=== PATIENT | female | born 1990 | race Caucasian/White ===

== ENCOUNTER 2020-03-29 02:10 | Emergency (ER) | payer OTHER, SELFPAY ==
[2020-03-29 02:13] VITALS: BP 95/59; PULSE 86; RESP 14; TEMP 35.4; BMI 18.6
--- NOTE | 2020-03-29 02:25 | PC.NURSE ---
pt states she has not slept in days and has taken percocets and herion the other day. pt is nodding off in the triage chair and leaning forwards. pupil pinpoint,.
--- NOTE | 2020-03-29 03:08 | PC.NURSE ---
pt was in the waiting room bathroom for a good length of time rn made aware pt has used drugs just the other day. pt also wanted to go out for a cig and was brought to room 2 instead.
[2020-03-29 04:00] VITALS: BP 94/57; PULSE 75; RESP 12; O2SAT 100
--- NOTE | 2020-03-29 04:01 | ED.FEMALEGU ---
HPI - Female Genitourinary General Chief complaint: Urogenital-Female Stated complaint: burning urination Time Seen by Provider: 03/29/20 04:01 History of Present Illness HPI Narrative: This is a 29-year-old female who presents with complaints of urinary pain/ burning / frequency this started approximately 2 days ago is not associated with any vaginal discharge, fevers, chills, nausea, vomiting. Patient does self endorse that she has been drinking alcohol and injecting IV drugs. Related Data Home Medications Medication Instructions Recorded Confirmed No Known Home Meds 03/29/20 03/29/20 Allergies Allergy/AdvReac Type Severity Reaction Status Date / Time No Known Allergies Allergy Verified 03/29/20 03:22 [No Known Allergies*] Review of Systems Review of Systems: Pertinent positives and negatives as stated in HPI 10 point review of systems otherwise negative. PMFSH Past Medical History Medical History Ovarian abscess Social History Social History Alcohol intake: never Smoking Status: Current every day smoker Use of substances other than those prescribed or required for medical reasons: Yes Substance Use Type: Crack/Cocaine, Heroin and IV Drugs Substance Use Frequency: Daily Last Used Substance: Days (ago) Any prior treatment program specific to substance use: Yes Advance Directives: No Advance Directives Information Provided: No Physical Exam Vital Signs and I&O and Narrative: Vital Signs and I&O: Vital Signs Temp 95.7 F L 03/29/20 02:13 Pulse 75 03/29/20 04:00 Resp 12 03/29/20 04:00 BP 94/57 L 03/29/20 04:00 Pulse Ox 100 03/29/20 04:00 Intake & Output 03/28/20 03/29/20 03/29/20 18:59 06:59 18:59 Weight 52.163 kg Body Mass Index 18.6 VITAL SIGNS: Reviewed. GENERAL: Well developed, well nourished, in no acute distress , and patient appears intoxicated. HEAD: Normocephalic/atraumatic, EYES: PERRLA, EOMI intact without pain, no nystagmus/pallor/icterus noted EARS: Ext canals without abnormality, TMs non-bulging and non-erythematous NOSE: Nares patent bilateral OROPHARYNX: no oral lesions noted, posterior pharynx clear and non-erythematous without noted tonsillar enlargement/erythema/exudates NECK: Supple, no adenopathy LUNGS: Normal breath sounds. No adventitious sounds or accessory muscle use. SpO2<> CARDIOVASCULAR: Regular rate and rhythm without noted murmurs, no JVD or lower extremity edema. ABDOMEN: Soft, non-tender, non-distended with bowel sounds. No rigidity. No guarding. No palpable masses or hernias noted MUSCULOSKELETAL: No tenderness, deformities, or effusions noted on gross inspection. EXTREMITIES: No cyanosis, clubbing or edema. SKIN: Inspection of the skin reveals no rashes, ulcerations, jaundice, pallor, or petechiae. NEUROLOGIC: Alert and oriented x 4. Strength and sensation to light touch were grossly intact Course Course Hospital Course: 0454: Patient appeared more lethargic and an attempt was made to provide Narcan, but patient woke up and was noted to be upset and refused Narcan and requesting to leave. She was informed by me that she would need to establish a safe ride which she stated she could arrange. 0502: Patient left AMA and refused home Narcan offered. Urine sample was not obtained MDM - Female Genitourinary MDM Narrative Medical decision making narrative: This is a 29-year-old female with history and clinical presentation consistent with suspected drug and alcohol intoxication, but will evaluate for possible UTI. Patient is noted to be eating and drinking at bedside without difficulty but clinically appeared to be under the influence of a substance. Lab Data Attestation: I reviewed the patient's lab results. Discharge Plan Discharge Clinical Impression: Dysuria Patient Disposition: Left Against Medical Advice Prescriptions: No Action No Known Home Meds RF: 0 Discharge Date/Time: 03/29/20 05:05
--- NOTE | 2020-03-29 04:16 | PC.NURSE ---
REPORT RECEIVED FROM CHELSEA PARIKH
--- NOTE | 2020-03-29 04:54 | PC.NURSE ---
pt was bent over in bed, attemted to treat with narcan nasal. pt refused and stated she was allergic to narcan. dr coy notified. dr gatica pt is to call for a ride home with narcan. pt states she is from [place] and has no ride home and that she was going to call the police to give her a ride home. security present pt escorted by police and left with police. pt stated to this rn that she did cocaine in the bathroom. dr coy made aware/. as the pt left with the police this rn offered the pt narcan to go. pt refused. it is believed that the pt did herion in the bathroom due to her drowy state. pt left with all her belongings.
--- NOTE | 2020-03-29 05:03 | PC.NURSE ---
pr left ama, jdan offered to pt and refused.
== END 2020-03-29 05:05 | disposition left against medical advice (07) ==
PROVIDERS: Emergency Provider Emergency Medicine
DX: R30.0 Dysuria (principal); F17.200 Nicotine dependence, unspecified, uncomplicated; F14.90 Cocaine use, unspecified, uncomplicated; F11.90 Opioid use, unspecified, uncomplicated
CPT/HCPCS: 99283; 99284